=== PATIENT | female | born 1970 | race Caucasian/White ===

== ENCOUNTER 2017-04-30 10:42 | Observation (INO) | payer BC ==
[~2017-04-30] VITALS: Ht 177.8 cm; Wt 63.5 kg
[~2017-04-30 10:42] MED LIST: MTR600X PO; OXYC-57 PO
[2017-04-30] MEDS ORDERED: SERT-234 PO (11:21)
[2017-04-30] MEDS ORDERED: BUPR1SUB23 PO (11:21)
--- NOTE | 2017-04-30 12:53 | DIAGNOSTIC IMAGING REPORT ---
ABDOMEN FOR HERNIA CLINICAL HISTORY: Right groin pain. COMPARISON STUDY: CT of the abdomen and pelvis December 01, 2014. FINDINGS: There is a nonreducible fat containing right groin hernia. The hernia sac contains a small amount of fluid. No definite bowel loops are identified by sonography. IMPRESSION: Nonreducible fat and fluid containing right groin hernia. Electronically signed by: Satya Jurado M.D. 04/30/2017 12:52 PM Dictated Date/Time: 04/30/2017 12:50 PM
[2017-04-30] MEDS ORDERED: OXYCODONE/ACETAMINOPHEN 5-325 TAB PO STA (13:08)
--- NOTE | 2017-04-30 14:27 | History and Physical ---
History & Physical Date Apr 30, 2017. History of Present Illness The patient is a 47 year old female with complaints of Rt groin pain after lifting heavy objects. No h/o inguinal hernia- u/s shows incarcerated Rt inguinal hernia with fat- no bowel Past Medical/Surgical History Medical Problems: (1) Depression Additional History Hepatic Disease: No Endocrine Disorder: No Kidney Disease: No Hypertension: No Heart Disease: No Bleeding Tendencies: No Infectious Diseases: No Allergies Coded Allergies: No Known Allergies (Verified , 04/30/17) Home Medications Scheduled Buprenorphine Hcl-Naloxone Hcl (Suboxone 8-2 Mg), 1 TAB PO TID Sertraline (Zoloft), 100 MG PO DAILY Physical Examination Skin: warm/dry Eyes: sclerae normal Head: atraumatic Neck: supple Respiratory/Chest: no respiratory distress Cardiovascular: regular rate, rhythm Abdomen / GI: + pertinent finding (Rt inguinal mass- very tender) Extremities: normal inspection Neurologic/Psych: alert Diagnosis Incarcerated Rt inguinal hernia Plan of Treatment Incarcerated Rt inguinal hernia- for urgent repair open operation- possible d/c home
[2017-04-30] MEDS ORDERED: BUPIVACAINE 0.5 % 5 MG/1 ML MPF 30ML VIAL ONE (14:29)
[2017-04-30] MEDS ORDERED: CEFAZOLIN SOD 1 GM VIAL ONE (14:29)
[2017-04-30] MEDS ORDERED: LIDOCAINE HCL 1% 20 ML VIAL ONE (14:29)
[2017-04-30] MEDS ORDERED: CEFAZOLIN IV 2,000 MG in DEXTROSE 5% 50ML 50 ML IV ONE (14:30)
[2017-04-30] MEDS ORDERED: HYDR-5688 PO ×2 (14:41→16:59)
[2017-04-30] MEDS ORDERED: CEPH500C2 PO ×2 (14:41→16:59)
--- NOTE | 2017-04-30 14:44 | Discharge Instructions ---
Discharge Instructions Date of Service Apr 30, 2017. Admission Reason for Admission: Hernia Discharge Discharge Diagnosis / Problem: Rt inguinal hernia Discharge Goals Goal(s): Decrease discomfort, Improve function, Improve disease control Activity Recommendations Activity Limitations: as noted below Lifting Limitations: no more than 10 pounds Exercise/Sports Limitations: until after follow-up appointment May Resume Sexual Activity: when tolerated Shower/Bathe: keep incision dry (may shower over incision in 2 days, do not soak in tub) Driving or Machine Use: wait 5 days SPECIAL CARE INSTRUCTIONS: * Cover incisions and change daily for comfort/drainage. * Leave steri strips in place * May use ibuprofen for pain as tolerated. * Expect some swelling and bruising. Call your doctor if: * Temperature above 101 degrees * Pain not relieved by pain medicine ordered * There is increased drainage or redness from any incision * You have any unanswered questions or concerns [phone]. FOLLOW UP VISIT: If not already scheduled, please call the office for a follow-up visit. for 1 week- wound check OFFICE PHONE NUMBER: Dr. Esparza Office . Current Hospital Diet Patient's current hospital diet: Discharge Diet Recommended Diet: Regular Diet Pending Studies Studies pending at discharge: no Medical Emergencies . Who to Call and When: Medical Emergencies: If at any time you feel your situation is an emergency, please call 911 immediately. . Non-Emergent Contact Non-Emergency issues call your: Primary Care Provider, Surgeon . "Provider Documentation" section prepared by Fidencio Esparza. . VTE Core Measure Inpt VTE Proph given/why not?: SCD's
[2017-04-30 15:01] LABS: BASO % 0.3 %; BASO ABS # 0.02 K/uL (0-0.2); COMPLETE YES; EOS % 3.7 %; HEMATOCRIT 37.5 % (37-47); IG% 0.2 %; LYMPH % 32.3 %; LYMPH ABS # 2.08 K/uL (1.2-3.4); MEAN CELL VOLUME 88.4 fL (80-100); MEAN CORPUSCULAR HEMOGLOBIN 31.1 pg (25-34); MEAN CORPUSCULAR HGB CONC 35.2 g/dl (32-36); MEAN PLATELET VOLUME 10.1 fL (7.4-10.4); MONO % 5.8 %; NEUT % 57.7 %; PLATELET COUNT 257 K/uL (130-400); RED BLOOD COUNT 4.24 M/uL (4.2-5.4); WHITE BLOOD COUNT 6.43 K/uL (4.8-10.8)
[2017-04-30 15:08] LABS: URINE APPEARANCE CLEAR (CLEAR); URINE BILIRUBIN NEG (NEG); URINE COLOR YELLOW; URINE NITRITE NEG (NEG); URINE PH 6.5 (4.5-7.5); URINE SPECIFIC GRAVITY 1.019 (1.000-1.030); UROBILINOGEN NEG (NEG)
[2017-04-30 15:17] LABS: BUN/CREATININE RATIO 21.9 (10-20); CALCIUM 8.4 mg/dl (8.5-10.1); CREATININE 0.63 mg/dl (0.60-1.20)
[2017-04-30 15:19] LABS: MANUAL MICROSCOPIC REQUIRED? NO; REVIEW REQ? NO
[2017-04-30] MEDS ORDERED: MEPERIDINE HCL 25 MG/ML CARP IV PRN (15:30)
[2017-04-30] MEDS ORDERED: ATROPINE SULFATE 0.1 MG/ML 5ML SYR IV PRN (15:30)
[2017-04-30] MEDS ORDERED: HYDROmorphone INJ 1 MG/ML SYR IV PRN (15:30)
[2017-04-30] MEDS ORDERED: ONDANSETRON INJ 2 MG/ML 2 ML VIAL IV PRN ×2 (15:30→16:45)
[2017-04-30] MEDS ORDERED: LABETALOL HCL IV 5 MG/ML 20ML IV PRN (15:30)
[2017-04-30] MEDS ORDERED: EpHEDrine SULFATE INJ 50 MG/ML AMP IV PRN (15:30)
[2017-04-30 15:31] LABS: PREG INTERNAL NEGATIVE QC NEG CLEAR BACKGROUND; PREG INTERNAL POSITIVE QC POS CONTROL LINE
[2017-04-30] MEDS ORDERED: MIDAZOLAM HCL 1 MG/ML 2ML VIAL ONE (15:39)
[2017-04-30] MEDS ORDERED: FENTANYL CITRATE INJ 50 MCG/1 ML 2 ML VIAL ONE ×3 (15:40→17:17)
[2017-04-30] MEDS ORDERED: PROPOFOL IV EMULSION 10 MG/ML 20 ML VIAL IV ONE (16:11)
[2017-04-30] MEDS ORDERED: ROCURONIUM BROMID 50MG/5ML SYR ONE (16:12)
[2017-04-30] MEDS ORDERED: ONDANSETRON INJ 2 MG/ML 2 ML VIAL ONE (16:12)
[2017-04-30] MEDS ORDERED: LIDOCAINE HCL 2% 2 ML VIAL (20MG/ML) ONE (16:12)
[2017-04-30] MEDS ORDERED: GLYCOPYRROLATE INJ 0.2 MG/ML VIAL ONE (16:12)
[2017-04-30] MEDS ORDERED: DEXAMETHASONE SOD INJ 4 MG/ML VIAL ONE (16:12)
[2017-04-30] MEDS ORDERED: NEOSTIGMINE METHYLSULFATE 5 MG/5 ML SYR ONE (16:12)
--- NOTE | 2017-04-30 16:44 | [facility] Operative Report ---
Operative Report Operative Date Apr 30, 2017. Pre-Operative Diagnosis Incarcerated Right Inguinal Hernia Post-Operative Diagnosis Incarcerated Right Femoral Hernia Procedure(s) Performed Right Inguinal Hernia Repair Surgeon Iasias Deputy Sheriff Lieutenant Surgeon(s) None Estimated Blood Loss 10CC Findings strangulated omentum Specimens A: Hernia Contents Anesthesia gen Complication(s) None Disposition Recovery Room / PACU I attest to the content of the Intraoperative Record and any orders documented therein. Any exceptions are noted below.
[2017-04-30] MEDS ORDERED: PROMETHAZINE HCL INJ 25 MG in SODIUM CHLORIDE 0.9% 50ML 50 ML IV PRN (16:45)
[2017-04-30] MEDS ORDERED: MoRPHine SULFATE 4 MG/ML 1 ML CARP\\VIAL IV PRN (16:45)
[2017-04-30] MEDS ORDERED: HYDROCODONE/ACETAMOPHEN 5/325MG TAB PO PRN ×2 (16:45)
[2017-04-30] MEDS ORDERED: KETOROLAC TROMETHAMINE 30 MG/ML VIAL IV. SCH (16:45)
[2017-04-30] MEDS ORDERED: MoRPHine SULFATE 2 MG/ML CARP IV PRN (16:45)
[2017-04-30] MEDS: FENTANYL CITRATE INJ 50 MCG/1 ML 2 ML VIAL IV PRN ×6 (16:59→17:28)
[2017-04-30] MEDS ORDERED: LACTATED RINGER'S 1000ML 1,000 ML IV SCH (17:00)
--- NOTE | 2017-04-30 17:09 | Anesthesiology Progress Note ---
Anesthesia Post Op Note Date & Time Apr 30, 2017 at 17:09 Vital Signs Pain Intensity: 8 Vital Signs Past 12 Hours Date Time Temp Pulse Resp B/P (MAP) Pulse Ox O2 Delivery O2 Flow Rate FiO2 04/30/17 16:47 36.1 66 20 120/73 99 Nasal Cannula 3 04/30/17 14:38 60 04/30/17 14:26 64 16 125/79 99 Room Air 04/30/17 12:55 55 16 105/62 96 Room Air 04/30/17 11:00 36.8 70 18 113/75 98 Room Air Notes Mental Status: alert / awake / arousable, participated in evaluation Pt Amnestic to Procedure: Yes Nausea / Vomiting: adequately controlled Pain: adequately controlled Airway Patency, RR, SpO2: stable & adequate BP & HR: stable & adequate Hydration State: stable & adequate Anesthetic Complications: no major complications apparent
[2017-04-30] MEDS ORDERED: KETOROLAC TROMETHAMINE 30 MG/ML VIAL ONE (17:16)
[2017-04-30] MEDS ORDERED: IV FLUIDS COMPLETED PRN (17:45)
[2017-04-30 18:00] VITALS: BP 117/74; PULSE 54; TEMP 36.5; O2SAT 100; Ht 177.8 cm; Wt 63.5 kg
[2017-04-30 18:30] VITALS: BP 113/71; PULSE 52; TEMP 36.6; O2SAT 96
--- NOTE | 2017-04-30 18:36 | OPERATIVE REPORT ---
DATE OF OPERATION: 04/30/2017 NAME OF OPERATION: Emergent right femoral hernia repair. PREOPERATIVE DIAGNOSIS: Incarcerated right inguinal hernia. POSTOPERATIVE DIAGNOSIS: Incarcerated right femoral hernia strangulation. PROCEDURE: The patient underwent emergent right femoral hernia repair under general anesthesia. STAFF SURGEON: Dr. Esparza. FINDINGS: The patient had some strangulated omentum within the femoral hernia which was excised, but there was no bowel involved. DESCRIPTION OF PROCEDURE: The patient was brought in the operating room and placed on the operating table in supine position. Her right lower quadrant prepped and draped in usual fashion. 0.5% plain Marcaine was used to anesthetize skin and subcutaneous tissue. Incision made carrying dissection down identifying the external oblique fibers. The hernia sac was below this indicating a femoral hernia which was incarcerated. The sac was opened, I encountered a strangulated omentum which was excised. The sac was then partially excised and then reduced and then a small mesh plugged was fashioned and then placed into the defect, secured to surrounding tissue using 2-0 Ethibond suture. The deep tissue was then reapproximated using 2-0 plain and chromic suture and then the skin reapproximated using subcuticular 4-0 Monocryl and Steri-Strips. The patient was transferred to recovery room in stable condition. I attest to the content of the Intraoperative Record and any orders documented therein. Any exception s are noted below.
[2017-04-30 19:00] VITALS: BP 102/61; PULSE 59; O2SAT 97
[2017-04-30] MEDS ORDERED: PROMETHAZINE HCL INJ 12.5 MG in SODIUM CHLORIDE 0.9% 50ML 50 ML IV PRN (19:15)
[2017-04-30 20:01] VITALS: BP 111/72; PULSE 54; O2SAT 97
--- NOTE | 2017-04-30 20:06 | Discharge Summary ---
Discharge Summary Date of Service Apr 30, 2017. Discharge Summary Admission Date: Apr 30, 2017 at 16:50 Discharge Date: Apr 30, 2017 Primary Diagnosis: incarcerated Rt femoral hernia Procedures: Rt femoral hernia repair Discharge Instructions Last Recorded Wt (Kilograms): 63.500 Allergies: Coded Allergies: No Known Allergies (Verified , 04/30/17) Special Care: Call your doctor if: * Temperature above 101 degrees * Pain not relieved by pain medicine ordered * There is increased drainage or redness from any incision * You have any unanswered questions or concerns. Avoid all tobacco products. If you need help to stop smoking, call [facility] FREE QUITLINE at . This is a free call. Hospital Course adm through ER- to OR for incarcerated Rt ing hernia repair had starngulated omentum. recovered well and felt stable for d/c home Total time spent on discharge = This includes examination of the patient, discharge planning, medication reconciliation, and communication with other providers.
[2017-04-30 20:10] VITALS: BP 111/72; PULSE 54; TEMP 36.6; O2SAT 97
--- NOTE | 2017-04-30 20:32 | EMERGENCY ROOM VISIT NOTE ---
ED Visit Note First contact with patient: 11:12 Chief Complaint: Right groin pain. History of Present Illness: Ms. He is a 47-year-old white female who ambulates into the ED accompanied by female friend complaining of right groin pain. Patient reports she was lifting a bag weighing approximately 100 pounds approximately 20 hours ago. As she was lifting she felt a pop in the right mid inguinal area. Since that time she has been having ongoing pain. Currently she reports her pain as an achy sensation at rest and when palpated become sharp. At rest she rates her discomfort 2/10 and with palpation and flexion of the hip she rates her discomfort 10/10. Her pain is nonradiating. Rest relieves her discomfort. She has not taken any medications for pain. She denies any associated symptoms including fevers, chills, sweats, skin eruptions , skin color changes, other abdominal pain, nausea, vomiting, diarrhea, constipation, urinary symptoms, hematuria, back/flank pain, bloody stool, black/ tarry stool, leg weakness/numbness/tingling. Review of Systems: As noted above in history of present illness. 8 body systems were reviewed and found to be negative as noted above. Past Medical History: Status post section, removal right ovary due to cyst and tubal ligation. Current Medications: Zoloft, Suboxone. Allergies to Medications: Patient denies. Social History: Patient is currently employed; she feels safe in her home environment; she admits to tobacco use and denies alcohol use. Physical Examination: Vital Signs: Date Time Temp Pulse Resp B/P (MAP) Pulse Ox O2 Delivery O2 Flow Rate FiO2 04/30/17 16:47 36.1 66 20 120/73 99 Nasal Cannula 3 04/30/17 14:38 60 04/30/17 14:26 64 16 125/79 99 Room Air 04/30/17 12:55 55 16 105/62 96 Room Air 04/30/17 11:00 36.8 70 18 113/75 98 Room Air GENERAL: 47-year-old female in mild distress due to pain, nontoxic-appearing, afebrile and hemodynamically stable. NEUROLOGICAL: Awake, alert and oriented to person, place and time. Answering questions appropriately and following commands. Normal gait. Good hand eye coordination. No focal motor or sensory deficits. SKIN: Warm, dry and pink. No soft tissue eruptions or trauma noted. HEENT: Atraumatic and normocephalic. Sclera white and conjunctiva pink. Airway patent. Pharynx is nonerythematous or edematous. Speech normal. No lymphadenopathy. Trachea midline. No jugular venous distention. THORAX: Lungs sounds are clear to auscultation and equal bilaterally with symmetrical chest wall. No wheezing, rales or rhonchi. ABDOMEN: Flat, soft and nontender. Positive bowel sounds in all quadrants. No guarding, rigidity or organomegaly. INGUINAL: On the right side patient has a 3 cm oval bulging lesions. Lesion is not erythematous or edematous. The lesion is moderately tender to palpation. No bowel sounds within the lesion. On my initial evaluation I tried to reduce it but was unsuccessful. Patient was then placed in Trendelenburg and ice was placed on the area. I did make a second attempt to reduce it and was unsuccessful. I do not appreciate any local lymphadenopathy. On the left side there is no lesion, swelling or lymphadenopathy. EXTREMITIES: Moves all extremities well on command and with purpose. All distal neurovascular statuses are intact and equal bilaterally. ED Course: Patient is assessed as noted above. Patient's medication list was reviewed. Laboratory Testing: Test 04/30/17 14:15 04/30/17 14:40 Range/Units Urine Color YELLOW Urine Appearance CLEAR CLEAR Urine pH 6.5 4.5-7.5 Urine Specific [place] 1.019 1.000-1.030 Urine Protein NEG NEG Urine Glucose (UA) NEG NEG Urine Ketones NEG NEG Urine Occult Blood 1+ NEG Urine Nitrite NEG NEG Urine Bilirubin NEG NEG Urine Urobilinogen NEG NEG Urine Leukocyte Esterase NEG NEG Urine WBC (Auto) 0 0-5 /hpf Urine RBC (Auto) 5-10 0-4 /hpf Urine Hyaline Casts (Auto) 0 0-5 /lpf Urine Epithelial Cells (Auto) 10-20 0-5 /lpf Urine Bacteria (Auto) NEG NEG White Blood Count 6.43 4.8-10.8 K/uL Red Blood Count 4.24 4.2-5.4 M/uL Hemoglobin 13.2 12.0-16.0 g/dL Hematocrit 37.5 37-47 % Mean Corpuscular Volume 88.4 80-100 fL Mean Corpuscular Hemoglobin 31.1 25-34 pg Mean Corpuscular Hemoglobin Concent 35.2 32-36 g/dl Platelet Count 257 130-400 K/uL Mean Platelet Volume 10.1 7.4-10.4 fL Neutrophils (%) (Auto) 57.7 % Lymphocytes (%) (Auto) 32.3 % Monocytes (%) (Auto) 5.8 % Eosinophils (%) (Auto) 3.7 % Basophils (%) (Auto) 0.3 % Neutrophils # (Auto) 3.71 1.4-6.5 K/uL Lymphocytes # (Auto) 2.08 1.2-3.4 K/uL Monocytes # (Auto) 0.37 0.11-0.59 K/uL Eosinophils # (Auto) 0.24 0-0.5 K/uL Basophils # (Auto) 0.02 0-0.2 K/uL RDW Standard Deviation 42.4 36.4-46.3 fL RDW Coefficient of Variation 13.2 11.5-14.5 % Immature Granulocyte % (Auto) 0.2 % Immature Granulocyte # (Auto) 0.01 0.00-0.02 K/uL Sodium Level 138 136-145 mmol/L Potassium Level 4.0 3.5-5.1 mmol/L Chloride Level 108 98-107 mmol/L Carbon Dioxide Level 25 21-32 mmol/L Anion Gap 5.0 3-11 mmol/L Blood Urea Nitrogen 14 7-18 mg/dl Creatinine 0.63 0.60-1.20 mg/dl Est Creatinine Clear Calc Drug Dose 113.0 ml/min Estimated GFR () 125.6 Estimated GFR (Non- 108.3 BUN/Creatinine Ratio 21.9 10-20 Random Glucose 89 70-99 mg/dl Calcium Level 8.4 8.5-10.1 mg/dl Human Chorionic Gonadotropin, Qual NEG NEG Inguinal Ultrasound: Was reviewed by myself and read by the radiologist showing a nonreducible fat and fluid containing hernia. No definitive loose of bowels identified. Patient was given one Percocet tablet by mouth for pain. Patient's case was reviewed with Dr. Han; we agreed on diagnostic approach, treatment, disposition and plan per Patient's case was consulted with Dr. Fidencio Esparza, general surgery; he independently assessed the patient and felt she needed surgery. Patient was educated about today's findings per Clinical Impression: Incarcerated right inguinal hernia. Decision-Making: Initially my differential diagnosis I considered hernia, strangulated hernia, incarcerated hernia, lymphadenopathy, muscle strain and other causes. Disposition and Plan: Patient be taken to the OR by Dr. Esparza; please see his notes and orders for final disposition and plan.
[2017-04-30] MEDS ORDERED: BUPRENORPHINE/NALOXONE 8/2 MG TAB SL SCH (21:00)
[2017-05-01] MEDS ORDERED: CEFAZOLIN IV 1,000 MG in DEXTROSE 5% 50ML 50 ML IV SCH ×2
[2017-05-01] MEDS ORDERED: SERTRALINE HCL 100 MG TAB PO SCH (09:00)
== END 2017-04-30 20:15 | disposition home or self-care (01) ==
LOC: C.EDB 10:45 → C.MSW 16:50 → ENRESERV 17:18
PROVIDERS: ADMIT Surgery; ATTEND Surgery
DX: K41.30 Unilateral femoral hernia, with obstruction, without gangrene, not specified as recurrent (principal); F32.9 Major depressive disorder, single episode, unspecified; Z79.899 Other long term (current) drug therapy